=== PATIENT | female | born 1985 | race Caucasian/White ===

== ENCOUNTER 2019-08-24 10:41 | Outpatient (RCR) | payer OTHER, SELFPAY ==
[2019-08-25] MEDS: RHO(D) IMMUNE GLOBULIN 300 MCG SYRINGE IM (18:23)
== END 2019-11-22 23:59 | disposition home or self-care (01) ==
LOC: ANHLAB 10:41
PROVIDERS: Visit Provider Student in an Organized Health Care Education/Training Program
DX: Z29.13 Encounter for prophylactic Rho(D) immune globulin (principal); O36.0990 Maternal care for other rhesus isoimmunization, unspecified trimester, not applicable or unspecified; Z3A.00 Weeks of gestation of pregnancy not specified
CPT/HCPCS: 36415; 86900; 86901; 90384; 96372; J2790

== ENCOUNTER 2019-10-05 06:32 | Inpatient (IN) | payer OTHER, SELFPAY ==
[2019-10-05] VITALS (120 sets, daily range): BP systolic 66–154; BP diastolic 34–85; PULSE 70–140; RESP 16; TEMP 36.6–37.1; O2SAT 84–100; BMI 25.9
--- NOTE | 2019-10-05 08:47 | LDADM ---
This patient, Karine Aburto, was admitted to Labor/Delivery/Recovery 103 on 10/05/19 at 06:32. Plans for labor, pain management and were discussed with patient. Patient/family oriented to hospital policies and general routines including ID bracelet, bed and alarms, visiting hours, pain management, procedures, bathroom and other care routines, personal items, smoking policy, room service/diet and guest tray routines, security routines, and visiting hours. Patient/Family are encouraged to report perceived risks to care and to ask questions if they do not understand what they are told or what they should do. See OBIX for further documentation.
[2019-10-05 08:48] LABS: Basophils Absolute Auto 0.1 K/mm3 (0.0-0.1); Basophils Percent Auto 0.4 % (0.2-1.2); Eosinophils Absolute Auto 0.2 K/mm3 (0-0.3); Eosinophils Percent Auto 1.4 % (0-4.4); Hematocrit 35.6 % (37.0-47.0); Hemoglobin 11.1 g/dL (12.0-15.0); Immature Granulocyte Absolute 0.22 K/mm3 (0.00-0.031); Immature Granulocyte Percent A 1.5 % (0-0.5); Lymphocytes Percent Auto 15.5 % (18.3-44.2); Mean Corpuscular HGB Conc 31.2 g/dl (32-36); Mean Corpuscular Hemoglobin 24.9 pg (26-34); Mean Corpuscular Volume 79.8 fl (80-100); Monocytes Absolute Auto 1.3 K/mm3 (0.1-0.6); Monocytes Percent Auto 9.3 % (2.6-8.5); Neutrophils Absolute Auto 10.2 K/mm3 (1.3-6.7); Neutrophils Percent Auto 71.9 % (45.5-73.1); Platelet Count Result 287 k/mm3 (150-375); Red Blood Count 4.46 M/mm3 (4.2-5.4); Red Cell Distribution Width 14.7 % (11.5-14.5); White Blood Count 14.2 K/mm3 (4.5-10.0)
--- NOTE | 2019-10-05 09:35 | WPDHPUPDATE1 ---
History and Physical Update Update Date/Time: 10/05/19 09:35 33 yo at 40w0d who presents with regular contractions. She denies vaginal bleeding or LOF. She endorses good FM. History and Physical has been reviewed, including an updated exam of the patient. There are NO changes in the patient's condition. Risks, benefits, and alternatives have been discussed and questions answered. Patient agrees to proceed with procedure. A/P 33 yo at 40w0d in labor cvx 4cm AROM for scant amount of clear fluid FHT cat 1 Rh+ GBS neg expectant managment
[2019-10-05] MEDS: LACTATED RINGERS 1,000 ML 125 ML IV CONT (10:15)
--- NOTE | 2019-10-05 11:55 | PM.OBPNLAB ---
Pain Control Date/time seen: 10/05/19 11:55 Pain control: epidural Pelvic Exam Dilation (cm): 8 Effacement (%): 90 station: 0 Contractions Monitor mode: External Contraction frequency: 2 Contraction pattern: Regular Status status: Category l Assessment and Plan Assessment: active labor Plan: continuous present management
--- NOTE | 2019-10-05 17:38 | PM.OBPRVD ---
OB - Delivery Note Procedure Procedure: Patient pushed for a spontaneous vaginal delivery. Nuchal cord x1 was noted at the perineum. The fetus was delivered atraumatically and placed on the maternal abdomen. The cord was clamped and cut after 1 minute of life. The cord was double clamped and cut and a segment of cord was collected for cord gases. Cord blood was collected for blood type and Coomb's testing. The placenta delivered spontaneously and was noted to be intact. The perineum was inspected and there was a 2nd degree perineal laceration. The laceration was repaired with 3-0 vicryl in the usual fashion. The uterus was firm and good hemostasis was noted. The patient and fetus were stable in the delivery room. Induction method: none Delivery augmentation: rupture of membranes Delivery monitor: external FHT Route of delivery: Episiotomy description: None Laceration description: Perineal - 2nd Degree Delivery repair: vicryl Specimen: No Estimated blood loss (mL): 300 Anesthesia type: Epidural Disposition: floor () Complications: No immediate complications [place] Baby Date of : 10/05/19 Time of : 17:15 Weeks of gestation at delivery: 40 Infant gender: Female Weight (pounds): 7 Weight (ounces): 7 presentation: vertex position: Right Occiput Anterior Placenta delivery description: Spontaneous cord vessel description: Nuchal Cord score one minute: 8 score five minutes: 9
--- NOTE | 2019-10-05 17:41 | PM.OBDSVD ---
OB - DS: Summary OB Procedures : None OB Procedures Intrapartum: Spontaneous Vag Delivery OB Procedures: : None Status at Discharge Functional status at discharge: independent ambulation Overall status at discharge: patient is back to baseline Time Spent with Patient Time attestation: Total time spent providing and/or coordinating discharge services: Time spent: Less than 30 minutes Exam Const: General: comfortable and no acute distress Resp: Effort & Inspection: normal respiratory effort Auscultation: clear to auscultation bilaterally Cardio: Rate: regular rate GI: GI Palp: Yes Soft to palpation Auscultation: normal bowel sounds Other: Fundus firm below umbilicus Psych: Appearance: grossly normal Mental Status: mental status grossly normal Affect: normal affect DS: Data Data Completed and Pending Labs on day of discharge: Labs from last 24 hours 10/05/19 10/05/19 10/05/19 08:39 08:39 08:39 WBC 14.2 H RBC 4.46 Hgb 11.1 L Hct 35.6 L MCV 79.8 L MCH 24.9 L MCHC 31.2 L RDW 14.7 H Plt Count 287 MPV 10.0 Immature Gran % (Auto) 1.5 H Neut % (Auto) 71.9 Lymph % (Auto) 15.5 L [place] % (Auto) 9.3 H Eos % (Auto) 1.4 Baso % (Auto) 0.4 Lymph # (Auto) 2.20 [place] # (Auto) 1.3 H Eos # (Auto) 0.2 Baso # (Auto) 0.1 Abs Immat Gran (auto) 0.22 H Absolute Neuts (auto) 10.2 H Absolute Nucleated RBC 0.0 Nucleated RBC % 0.0 RPR Pending Blood Type B Negative Antibody Screen Positive Antibody Identification Passive Due to RH Imm Glob Antigen Identification Pending DEEDEE, IgG Interpret TNP DEEDEE, Poly Interpret Negative DEEDEE, Complement Interp TNP Discharge Plan Discharge Attending physician on discharge: Connor Powers Discharging Clinician: Gabo Brown Patient Disposition: Home, Self-Care Activity: may shower, as tolerated and pelvic rest Diet: regular Discharge Instructions: Education: Mom and Baby Guide Given to: Mother Follow-Up: Call your delivering provider's office for an appointment to be seen in: 6 Weeks Mom and baby should come to the [facility] for the follow-up appointment. Appointment Date/Time: October 08, 2019 at 11:00 am What to expect at your follow-up visit: Blood Pressure Check Call [phone] if you are unable to keep your appointment time. BREAST CARE: 1. Wear a snug supportive bra. 2. For engorgement discomfort: Breast Feeding: A. Apply warm moist washcloths B. Express milk as needed to relieve engorgement C. Wear loose clothing Bottle Feeding: A. May apply ice packs 3. For sore nipples: A. Identify correct latch-on B. Apply warm moist washcloths before and after nursing C. Air dry nipples after nursing D. May apply Lansinoh cream to nipples PERINEAL CARE: 1. Until bleeding stops, use your martin bottle after urinating 2. Change your pad frequently throughout the day 3. You may take sitz baths several times a day (fill your bathtub with warm water and soak for 20 minutes.) Do NOT bathe in the water 4. No tub baths until seen by your physician - You may shower ACTIVITY: 1. Rest as much as possible. 2. Do not exercise or lift anything heavier than your baby (such as laundry or other children.) 3. Avoid stairs or driving as much as possible. 4. Do not put anything into the vagina. No douching, tampons, or sexual activity until seen by physician. NOTIFY PHYSICIAN IF YOU HAVE ANY QUESTIONS OR IF ANY OF THE FOLLOWING SYMPTOMS OCCUR: 1. If your perineum becomes red, swollen, or more painful than what you have experienced in the hospital. 2. If your vaginal bleeding becomes foul smelling. 3. If your vaginal bleeding becomes more heavy than a period or if your bleeding changes from pink to bright red. However, you may pass an occasional wal
[2019-10-05] MEDS: OXYTOCIN 30 UNITS/NS 500 ML 30 UNITS/500 ML BAG 125 UNITS IV CONT (18:03)
[2019-10-05] MEDS: IBUPROFEN 600 MG TABLET PO (18:53)
[2019-10-05] MEDS: BENZOCAINE 20% AER SPR (*SP) 56 GM CAN 1 SPRAY TOPICAL (18:54)
[2019-10-05] MEDS: WITCH HAZEL 40 PADS 1 PAD TOPICAL (18:54)
--- NOTE | 2019-10-05 20:20 | OBPPTRN ---
Patient transferred to post room #290 via wheelchair. Support person present. Oriented to unit, room, information board, rooming in, admission packet and security measures. Patient verbalizes understanding. with patient.
[2019-10-05] MEDS: ACETAMINOPHEN 325 MG TABLET 650 MG PO (23:09)
[2019-10-06] MEDS: IBUPROFEN 600 MG TABLET PO ×2 (04:33→15:27)
[2019-10-06 04:55] LABS: Hematocrit 30.7 % (37.0-47.0); Hemoglobin 9.3 g/dL (12.0-15.0)
--- NOTE | 2019-10-06 06:47 | PM.OBPNVD ---
OB - PN: Subj Subjective Date/time seen: 10/06/19 06:47 Patient comments: no complaints and pain well controlled baby status: doing well and nursing well OB - PN: Obj Data Labs CBC & Chem 7: 10/06/19 04:37 Labs: Laboratory Results - last 24 hr 10/05/19 10/05/19 10/06/19 08:39 08:39 04:37 WBC 14.2 H RBC 4.46 Hgb 11.1 L 9.3 L Hct 35.6 L 30.7 L MCV 79.8 L MCH 24.9 L MCHC 31.2 L RDW 14.7 H Plt Count 287 MPV 10.0 Immature Gran % (Auto) 1.5 H Neut % (Auto) 71.9 Lymph % (Auto) 15.5 L [place] % (Auto) 9.3 H Eos % (Auto) 1.4 Baso % (Auto) 0.4 Lymph # (Auto) 2.20 [place] # (Auto) 1.3 H Eos # (Auto) 0.2 Baso # (Auto) 0.1 Abs Immat Gran (auto) 0.22 H Absolute Neuts (auto) 10.2 H Absolute Nucleated RBC 0.0 Nucleated RBC % 0.0 Blood Type B Negative Antibody Screen Positive Antibody Identification Passive Due to RH Imm Glob DEEDEE, IgG Interpret TNP DEEDEE, Poly Interpret Negative DEEDEE, Complement Interp TNP Baby's Blood Type Baby's DEEDEE 10/06/19 04:37 WBC RBC Hgb Hct MCV MCH MCHC RDW Plt Count MPV Immature Gran % (Auto) Neut % (Auto) Lymph % (Auto) [place] % (Auto) Eos % (Auto) Baso % (Auto) Lymph # (Auto) [place] # (Auto) Eos # (Auto) Baso # (Auto) Abs Immat Gran (auto) Absolute Neuts (auto) Absolute Nucleated RBC Nucleated RBC % Blood Type B Negative Antibody Screen TNP Antibody Identification DEEDEE, IgG Interpret DEEDEE, Poly Interpret DEEDEE, Complement Interp Baby's Blood Type O pos Baby's DEEDEE Positive OB - PN A/P Plan day: 1 Plan: routine care Time Spent With Patient Time: Total time spent is greater than 50% in coordination of care (as documented) at patient's floor/unit and/or counseling patient: Time with patient: less than 15 minutes Review of Systems Review of Systems: All systems reviewed & are unremarkable except as noted in HPI and below Exam Const: General: no acute distress Eyes: General: appearance normal, both eyes and all related structures Neck: Neck: supple and no JVD Thyroid: thyroid normal Resp: Effort & Inspection: normal respiratory effort Auscultation: clear to auscultation bilaterally Cardio: Rate: regular rate Rhythm: regular rhythm GI: Inspection: non-distended GI Palp: Yes Soft to palpation, No Tenderness to palpation present (GI) and No Guarding due to palpation present (GI) Auscultation: normal bowel sounds : General: Yes bladder normal to palpation External Female Exam: normal external appearance Speculum Exam - Vagina: normal vaginal discharge and No vaginal bleeding Speculum Exam - Cervix: nontender Bimanual exam- vagina & uterus: bladder normal to palpation and No Cervical tenderness present OB/external & speculum: No vaginal bleeding Skin: General skin exam: no rashes or lesions noted Extrem: General: normal to inspection and no edema Psych: Mental Status: mental status grossly normal Affect: normal affect
[2019-10-06] MEDS: POLYSACCHARIDE IRON COMPLEX 150 MG CAPSULE PO ×2 (07:11→15:28)
[2019-10-06] MEDS: MULTIVIT/MIN/PREN/FOL AC/IRON TABLET 1 TAB PO (07:12)
[2019-10-06] MEDS: DOCUSATE SODIUM 100 MG CAPSULE PO ×2 (07:12→15:28)
[2019-10-06 08:00] VITALS: BP 123/88; PULSE 82; RESP 18; TEMP 37.2; O2SAT 99
[2019-10-06 10:06] LABS: Rapid Plasma Reagin Non-Reactive (NonReactive)
[2019-10-06] MEDS: RHO(D) IMMUNE GLOBULIN 300 MCG SYRINGE IM (15:39)
[2019-10-06 19:50] VITALS: BP 134/69; PULSE 106; RESP 16; TEMP 37; O2SAT 100
[2019-10-06] MEDS: ACETAMINOPHEN 325 MG TABLET 650 MG PO (19:57)
[2019-10-07] MEDS: IBUPROFEN 600 MG TABLET PO (04:54)
--- NOTE | 2019-10-07 06:19 | PC.NURSE ---
Patient was given the opportunity to view the discharge video Mother & Baby Care, The First Two Weeks and to ask questions. Patient declined viewing the video and has been given the mother/baby guide for home reference. Patient delivered her first child at [facility], and states she remembers the video.
--- NOTE | 2019-10-07 07:30 | PC.NURSE ---
PT introductions made and plan of care discussed per post , pain management, breast feeding, daily care activities and pending discharge to home. PT verbalized understanding of such care.
[2019-10-07 08:20] VITALS: BP 126/82; PULSE 89; RESP 18; TEMP 36.9; O2SAT 99
--- NOTE | 2019-10-07 08:41 | PM.OBPNVD ---
OB - PN: Subj Subjective Date/time seen: 10/07/19 08:41 Narrative: Pain OK. Would like to go home. OB - PN: Obj Data Labs CBC & Chem 7: 10/06/19 04:37 Labs: Laboratory Results - last 24 hr 10/05/19 10/06/19 08:39 04:37 RPR Non-reactive Blood Type B Negative Antibody Screen TNP Screen Negative Baby's Blood Type O pos Baby's DEEDEE Positive Doses of RhIg Required 1 OB - PN A/P Plan Comments: A: PPD#2, doing well. P: Home to f/u 6 weeks. Exam Psych: Other: AVSS ABD soft, nontender, fundus firm EXT nontender
[2019-10-07 10:00] VITALS: PULSE 89; RESP 18; O2SAT 99
[2019-10-07] MEDS: ACETAMINOPHEN 325 MG TABLET 650 MG PO (10:06)
[2019-10-07] MEDS: POLYSACCHARIDE IRON COMPLEX 150 MG CAPSULE PO (10:07)
[2019-10-07] MEDS: MULTIVIT/MIN/PREN/FOL AC/IRON TABLET 1 TAB PO (10:08)
[2019-10-07] MEDS: DOCUSATE SODIUM 100 MG CAPSULE PO (10:08)
--- NOTE | 2019-10-07 12:30 | PC.NURSE ---
PT received discharge instructions per protocol and verbalized understanding of such instructions.
--- NOTE | 2019-10-07 13:00 | PC.NURSE ---
PT discharged to home ambulatory accompanied by spouse and to waiting car. Follow up appts confirmed
[2019-10-08 11:27] VITALS: BP 131/78; PULSE 86; RESP 14; TEMP 37.2
== END 2019-10-07 13:00 | disposition home or self-care (01) | DRG 807 ==
LOC: ANHLDR 17:41 → ANHOB2 10-07 07:43 → ANHLDR 10-08 11:35 → ANHOB2 10-08 11:35
PROVIDERS: Admitting Provider Student in an Organized Health Care Education/Training Program; Visit Provider Obstetrics & Gynecology
DX: O69.81X0 Labor and delivery complicated by cord around neck, without compression, not applicable or unspecified (principal); Z37.0 Single live birth; Z3A.40 40 weeks gestation of pregnancy; O76 Abnormality in fetal heart rate and rhythm complicating labor and delivery; O70.1 Second degree perineal laceration during delivery
CPT/HCPCS: 36415; 85014; 85018; 85025; 85461; 86592; 86850; 86880; 86900; 86901; 86902; 90384; A9270; J2590; J2790; J2795; J7120

== ENCOUNTER 2021-08-04 13:06 | Emergency (ER) | payer OTHER, SELFPAY ==
--- NOTE | ~2021-08-04 | XR_ITS ---
EXAMINATION: XR ankle LT min 3V DATE: 08/04/2021 13:33 INDICATION: Left ankle pain TECHNIQUE: Anteroposterior, lateral, mortise, and additional oblique view of the ankle were obtained. COMPARISON: None. FINDINGS: There is no fracture, dislocation, or subluxation. The bones, soft tissues, and joint space s are normal. IMPRESSION: 1. No acute osseous abnormality. Reviewed, dictated and finalized at location A. [employer]
[2021-08-04 13:20] VITALS: BP 125/60; PULSE 83; RESP 16; TEMP 36.8; O2SAT 100
--- NOTE | 2021-08-04 13:53 | ED.LOWEXIN ---
HPI - Extremity Injury (Lower) General Chief Complaint: Extremity Injury, Lower Stated Complaint: FALL/INJURED L ANKLE Time Seen by Provider: 08/04/21 13:47 Source: patient and RN notes reviewed Mode of arrival: ambulatory Limitations: no limitations History of Present Illness HPI Narrative: Patient presents today complaining of left ankle injury. She fell on some ice and rolled her ankle yesterday at 1630. She reports some tingling to her toes, but denies numbness. She currently rates her pain 2/10, which increases with walking. She has been taking ibuprofen with some relief. MD complaint: ankle injury Related Data Allergies Allergy/AdvReac Type Severity Reaction Status Date / Time Penicillins Allergy Unknown Verified 02/15/16 13:45 Review of Systems Review of Systems: CONSTITUTIONAL: Denies body aches, fever, chills, or sweats. EYES: Denies visual changes, redness, or discharge. ENT: Denies rhinorrhea, congestion, sore throat, or otalgia. CARDIOVASCULAR: Denies chest pain, palpitations, or edema. RESPIRATORY: Denies cough or dyspnea. GASTROINTESTINAL: Denies abdominal pain, nausea, vomiting, or diarrhea. GENITOURINARY: Denies dysuria or hematuria. SKIN: Denies rash, itching, or wounds. MUSCULOSKELETAL: Denies back pain, or myalgia. + Left ankle injury NEUROLOGIC: Denies headache, numbness, or weakness.+ Tingling of toes PSYCH: Denies depression or anxiety. [facility] Family History Family History Father Diabetes mellitus Hypertension Family history of diabetes mellitus in first degree relative Mother Diabetes mellitus Hypertension Family history of diabetes mellitus in first degree relative Grandparent Family history of lung cancer Family history of malignant neoplasm of brain Other Family history of malignant neoplasm of ovary Social History Social History Smoking status: Never smoker Alcohol intake: current Substance use: never Gender identity (if verbalized by the patient): Female Spiritual care concerns: No Comments At time of signature, I have reviewed and agree with nursing past medical, surgical, social and family history unless otherwise noted. Please see nursing chart for further information. There is no relevant family history pertinent to the presenting complaint Exam Narrative: GENERAL: Well-appearing, well-nourished, and in no acute distress. HEAD: Normocephalic, atraumatic. EYES: EOMI. No redness or drainage. Conjunctivae normal. ENT: Mucous membranes pink and moist. NECK: Normal AROM. CHEST: No respiratory distress. EXTREMITIES: Left ankle: Mild edema to the lateral ankle. No bony tenderness of the lateral malleolus. Soft tissue tenderness to the lateral ankle with mild ecchymosis as well. Mild tenderness to the anterior ankle as well. Distal sensation intact in all toes. Capillary refill normal. Pedal pulse normal. Full range of motion of the ankle with increased pain with dorsiflexion. SKIN: Warm, dry, no rash. Capillary refill normal. Normal skin turgor. NEURO: No focal deficits. Alert and oriented x3. Gait steady. PSYCH: Normal affect. No signs of depression or anxiety. Course Course Level of Care: Express Care Visit Vital Signs Vital signs: Vital Signs Temperature 98.3 F 08/04/21 13:20 Pulse Rate 83 08/04/21 13:20 Respiratory Rate 16 08/04/21 13:20 Blood Pressure 125/60 08/04/21 13:20 Pulse Oximetry 100 08/04/21 13:20 Temperature 98.3 F 08/04/21 13:20 Pulse Rate 83 08/04/21 13:20 Respiratory Rate 16 08/04/21 13:20 Blood Pressure 125/60 08/04/21 13:20 Pulse Oximetry 100 08/04/21 13:20 Reviewed. Pt has been instructed to follow up with her PCP regarding her elevated blood pressure today. MDM - Extremity Injury (Lower) Differential Diagnosis Differential diagnosis: Likely ankle sprain and strai
== END 2021-08-04 14:01 | disposition home or self-care (01) ==
PROVIDERS: Emergency Provider Nurse Practitioner
DX: S93.402A Sprain of unspecified ligament of left ankle, initial encounter (principal); W00.9XXA Unspecified fall due to ice and snow, initial encounter
CPT/HCPCS: 73610; 99213; G0463

== ENCOUNTER 2023-02-14 09:07 | Outpatient (RCR) | payer OTHER, SELFPAY ==
[2023-02-15] MEDS: RHO(D) IMMUNE GLOBULIN 300 MCG/2 ML SYRINGE IM (19:50)
== END 2023-05-15 23:59 | disposition home or self-care (01) ==
LOC: ANHLAB 09:07
PROVIDERS: Visit Provider Obstetrics & Gynecology
DX: Z29.13 Encounter for prophylactic Rho(D) immune globulin (principal); O36.0190 Maternal care for anti-D [Rh] antibodies, unspecified trimester, not applicable or unspecified; Z3A.00 Weeks of gestation of pregnancy not specified
CPT/HCPCS: 36415; 85461; 86850; 86900; 86901; 90384; 96372; J2790

== ENCOUNTER 2023-05-06 07:30 | Inpatient (IN) | payer BC, SELFPAY ==
[2023-05-06] VITALS (70 sets, daily range): BP systolic 90–146; BP diastolic 51–100; PULSE 55–119; RESP 16–18; TEMP 36.5–36.6; O2SAT 84–100; BMI 29.2
[2023-05-06 08:21] LABS: Basophils Absolute Auto 0.1 K/mm3 (0.0-0.1); Basophils Percent Auto 0.6 % (0.2-1.2); Eosinophils Absolute Auto 0.2 K/mm3 (0-0.3); Eosinophils Percent Auto 1.1 % (0-4.4); Hematocrit 35.2 % (37.0-47.0); Hemoglobin 10.7 g/dL (12.0-15.0); Immature Granulocyte Absolute 0.33 K/mm3 (0.00-0.031); Immature Granulocyte Percent A 2.3 % (0-0.5); Lymphocytes Percent Auto 15.6 % (18.3-44.2); Mean Corpuscular HGB Conc 30.4 g/dl (32-36); Mean Corpuscular Hemoglobin 23.2 pg (26-34); Mean Corpuscular Volume 76.4 fl (80-100); Mean Platelet Volume 9.6 fl (7.4-10.4); Monocytes Absolute Auto 1.2 K/mm3 (0.1-0.6); Monocytes Percent Auto 8.5 % (2.6-8.5); Neutrophils Absolute Auto 10.1 K/mm3 (1.3-6.7); Neutrophils Percent Auto 71.9 % (45.5-73.1); Platelet Count Result 310 k/mm3 (150-375); Red Blood Count 4.61 M/mm3 (4.2-5.4); Red Cell Distribution Width 16.8 % (11.5-14.5); White Blood Count 14.1 K/mm3 (4.5-10.0)
[2023-05-06] MEDS: LACTATED RINGERS 500 ML 999 ML IV CONT (08:31)
[2023-05-06 08:33] LABS: Alanine Aminotransferase 15 U/L (6-35); Albumin Level 3.5 g/dL (3.5-5.1); Alkaline Phosphatase 138 U/L (38-126); Anion Gap 7 mmol/L (8-16); Aspartate Amino Transferase 28 U/L (14-36); Bilirubin,Total 0.5 mg/dL (0.2-1.3); Blood Urea Nitrogen 7 mg/dL (7-17); Calcium 8.6 mg/dL (8.4-10.2); Carbon Dioxide 23 mmol/L (22-30); Chloride 104 mmol/L (98-107); Estimated CRCL calculation 141 ml/min; Estimated Glomerular Filt Rate > 60; Glucose 82 mg/dL (65-110); Potassium 3.9 mmol/L (3.4-5.0); Sodium 134 mmol/L (137-145); Uric Acid 3.7 mg/dL (2.5-7.5)
--- NOTE | 2023-05-06 08:47 | PM.IMHP ---
H&P: HPI History of Present Illness Date/Time: 05/06/23 08:47 Chief Complaint: Labor at term Narrative: 37-year-old 3 para 2 whose EDC is 05/02/2023 presents at 40 half weeks gestation active labor. has been uncomplicated she received RhoGAM at 28 weeks her diabetic screen was normal and she had low risk NIPT PMFSH Family History Family History Father Diabetes mellitus Hypertension Family history of diabetes mellitus in first degree relative Mother Diabetes mellitus Hypertension Family history of diabetes mellitus in first degree relative Grandparent Family history of lung cancer Family history of malignant neoplasm of brain Other Family history of malignant neoplasm of ovary Social History Social History Smoking status: Never smoker Second hand tobacco smoke exposure: No Alcohol intake: current Substance use: never Lack of Transportation: No Lack of Food: Never True Current Housing: I Have Housing Concerned About Future Housing: No Difficulty Paying Gas/Electric Bills: No Difficulty Paying for Meds: No Currently Unemployed: No Education: Master's Degree or Higher Difficulty w/ Childcare or Family Care: No Gender identity (if verbalized by the patient): Female Spiritual care concerns: No Meds Home Medications and Allergies Home Medications Medication Instructions Recorded Confirmed Type ferrous sulfate 325 mg (65 mg 325 mg PO DAILY 04/11/23 04/11/23 History iron) tablet prenat.vits,breann,[id number] 1 tablet TIDWMEAL 04/11/23 04/11/23 History Allergies Allergy/AdvReac Type Severity Reaction Status Date / Time Penicillins Allergy Unknown Hives Verified 04/11/23 14:38 Vital Signs Vital Signs - 24 hr 05/06/23 08:13 05/06/23 08:16 05/06/23 08:31 Pulse Rate 96 92 Blood Pressure 130/83 134/81 Oxygen Delivery Room Air Exam Const: General: cooperative, healthy appearing and comfortable Nutritional Appearance: average body habitus Orientation/consciousness: oriented to person, oriented to place and oriented to time Resp: Effort & Inspection: normal respiratory effort Cardio: Rate: regular rate Rhythm: regular rhythm Heart sounds: S1 normal heart sound present and S2 normal heart sound present GI: Inspection: normal to inspection ( gravid soft uterus) : Speculum Exam - Vagina: normal appearance of the vagina Speculum Exam - Cervix: normal appearance of the cervix ( cervix 7100/1. AROM clear. FHTs reassuring) H&P: Results Labs Labs: Short CBC 05/06/23 Range/Units 08:13 WBC 14.1 H (4.5-10.0) K/mm3 Hgb 10.7 L (12.0-15.0) g/dL Hct 35.2 L (37.0-47.0) % Plt Count 310 (150-375) k/mm3 BMP 05/06/23 08:13 Sodium 134 L Potassium 3.9 Chloride 104 Carbon Dioxide 23 BUN 7 Creatinine 0.50 L Glucose 82 Calcium 8.6 Liver Function 05/06/23 Range/Units 08:13 Total Bilirubin 0.5 (0.2-1.3) mg/dL AST 28 (14-36) U/L ALT 15 (6-35) U/L Alkaline Phosphatase 138 H (38-126) U/L Albumin 3.5 (3.5-5.1) g/dL Assessment and Plan Assessment and plan (1) Term : Code(s): Z34.90 - Encounter for supervision of normal , unspecified, unspecified trimester Status: Acute Plan spontaneous vaginal delivery is expected. She is an epidural candidate.
--- NOTE | 2023-05-06 09:17 | WPDANESEPP ---
Anes - Eval Pre Procedure Procedure: Labor epidural Date/Time: 05/06/23 09:17 Surgeon: Rickie Hung Preop Diagnosis: Pain during labor Pre Op Diagnosis: Labor Patient Data Age: 37 Gender: F Height: 1.68 m Weight: 82 kg Last Vital Signs Pulse 90 05/06/23 09:15 BP 128/83 05/06/23 09:15 Pulse Ox 97 05/06/23 09:15 O2 Del Method Room Air 05/06/23 08:13 Allergies Allergy/AdvReac Type Severity Reaction Status Date / Time Penicillins Allergy Unknown Hives Verified 04/11/23 14:38 Home Medications Medication Instructions Recorded Confirmed Type ferrous sulfate 325 mg (65 mg 325 mg PO DAILY 04/11/23 04/11/23 History iron) tablet prenat.vits,breann,[id number] 1 tablet TIDWMEAL 04/11/23 04/11/23 History Laboratory Tests 05/06/23 08:13 WBC 14.1 H K/mm3 (4.5-10.0) RBC 4.61 M/mm3 (4.2-5.4) Hgb 10.7 L g/dL (12.0-15.0) Hct 35.2 L % (37.0-47.0) MCV 76.4 L fl (80-100) MCH 23.2 L pg (26-34) MCHC 30.4 L g/dl (32-36) RDW 16.8 H % (11.5-14.5) Plt Count 310 k/mm3 (150-375) MPV 9.6 fl (7.4-10.4) Immature Gran % (Auto) 2.3 H % (0-0.5) Neut % (Auto) 71.9 % (45.5-73.1) Lymph % (Auto) 15.6 L % (18.3-44.2) [place] % (Auto) 8.5 % (2.6-8.5) Eos % (Auto) 1.1 % (0-4.4) Baso % (Auto) 0.6 % (0.2-1.2) Lymph # (Auto) 2.20 K/mm3 (0.9-3.2) [place] # (Auto) 1.2 H K/mm3 (0.1-0.6) Eos # (Auto) 0.2 K/mm3 (0-0.3) Baso # (Auto) 0.1 K/mm3 (0.0-0.1) Abs Immat Gran (auto) 0.33 H K/mm3 (0.00-0.031) Absolute Neuts (auto) 10.1 H K/mm3 (1.3-6.7) Absolute Nucleated RBC 0.0 K/mm3 (0.0-0.012) Nucleated RBC % 0.0 % (0.0-0.2) Sodium 134 L mmol/L (137-145) Potassium 3.9 mmol/L (3.4-5.0) Chloride 104 mmol/L (98-107) Carbon Dioxide 23 mmol/L (22-30) Anion Gap 7 L mmol/L (8-16) BUN 7 mg/dL (7-17) Creatinine 0.50 L mg/dL (0.7-1.0) Estim Creat Clear Calc 141 ml/min Estimated GFR > 60 (59 - ) Glucose 82 mg/dL (65-110) Uric Acid 3.7 mg/dL (2.5-7.5) Calcium 8.6 mg/dL (8.4-10.2) Total Bilirubin 0.5 mg/dL (0.2-1.3) AST 28 U/L (14-36) ALT 15 U/L (6-35) Alkaline Phosphatase 138 H U/L (38-126) Total Protein 7.0 g/dL (6.3-8.2) Albumin 3.5 g/dL (3.5-5.1) RPR Pending Blood Type B Negative Antibody Screen Pending Patient hx anesthesia problems: none Family hx anesthesia problems: none Results Review: All pre-operative results and documents have been reviewed as part of the pre-operative evaluation. [facility] Family History Family History Father Diabetes mellitus Hypertension Family history of diabetes mellitus in first degree relative Mother Diabetes mellitus Hypertension Family history of diabetes mellitus in first degree relative Grandparent Family history of lung cancer Family history of malignant neoplasm of brain Other Family history of malignant neoplasm of ovary Social History Social History Smoking status: Never smoker Second hand tobacco smoke exposure: No Alcohol intake: current Substance use: never Lack of Transportation: No Lack of Food: Never True Current Housing: I Have Housing Concerned About Future Housing: No Difficulty Paying Gas/Electric Bills: No Difficulty Paying for Meds: No Currently Unemployed: No Education: Master's Degree or Higher Difficulty w/ Childcare or Family Care: No Gender identity (if verbalized by the patient): Female Spiritual care concerns: No Exam Day of Procedure 05/06/23 09:17 Patient weight: normal Neurological: alert and oriented
[2023-05-06] MEDS: OXYTOCIN 30 UNITS/NS 500 ML 30 UNITS/500 ML BAG 999 UNITS IV CONT (12:05)
--- NOTE | 2023-05-06 12:13 | PM.OBPRVD ---
OB - Vaginal Delivery Note Procedure Delivery date: 05/06/23 Induction method: None Delivery augmentation: Rupture of Membranes Delivery monitor: External FHT Route of delivery: Episiotomy description: None Laceration Description: Perineal - 2nd Degree Delivery repair: vicryl Specimen: No Quantitative Blood Loss (ml): 60 Anesthesia type: Epidural Disposition: Floor [place] Baby Date of : 05/06/23 Time of : 12:01 Weeks of gestation at delivery: 40 presentation: vertex position: Right Occiput Anterior Placenta delivery description: Spontaneous Cord Vessel Description: 3 Vessels, Nuchal Cord, Tight and Clamped/Cut score one minute: 9 score five minutes: 9
--- NOTE | 2023-05-06 12:15 | PM.DS ---
DS: Admitting Diagnosis Discharge Date 05/07/2023 Admitting Diagnosis term DS: Summary Hospital Course Reason for hospitalization: patient was admitted in active labor 40 and half weeks gestation on 05/06/2023 Hospital Course: patient underwent spontaneous vaginal delivery second-degree tear and repair. Hospital course unremarkable. She was ambulating voiding without difficulty and generally Phylicia complaints. Time Spent with Patient Time attestation: Total time spent providing and/or coordinating discharge services: DS: Data Data Completed and Pending Labs on day of discharge: Labs from last 24 hours 05/06/23 08:13 WBC 14.1 H RBC 4.61 Hgb 10.7 L Hct 35.2 L MCV 76.4 L MCH 23.2 L MCHC 30.4 L RDW 16.8 H Plt Count 310 MPV 9.6 Immature Gran % (Auto) 2.3 H Neut % (Auto) 71.9 Lymph % (Auto) 15.6 L Dyer % (Auto) 8.5 Eos % (Auto) 1.1 Baso % (Auto) 0.6 Lymph # (Auto) 2.20 Dyer # (Auto) 1.2 H Eos # (Auto) 0.2 Baso # (Auto) 0.1 Abs Immat Gran (auto) 0.33 H Absolute Neuts (auto) 10.1 H Absolute Nucleated RBC 0.0 Nucleated RBC % 0.0 Sodium 134 L Potassium 3.9 Chloride 104 Carbon Dioxide 23 Anion Gap 7 L BUN 7 Creatinine 0.50 L Estim Creat Clear Calc 141 Estimated GFR > 60 Glucose 82 Uric Acid 3.7 Calcium 8.6 Total Bilirubin 0.5 AST 28 ALT 15 Alkaline Phosphatase 138 H Total Protein 7.0 Albumin 3.5 RPR Pending Blood Type B Negative Antibody Screen Positive Antibody Identification Pending Antigen Identification Pending DEEDEE, IgG Interpret Not Performed DEEDEE, Poly Interpret Negative DEEDEE, Complement Interp Pending Discharge Plan Discharge Attending physician on discharge: Gabo Arnold Discharging Clinician: Gabo Arnold Patient Disposition: Home, Self-Care Activity: may shower, no straining and pelvic rest Diet: heart healthy Wound Care Instructions: follow printed instructions Patient Instructions: Antibiotic Form Stand Alone Forms: General Discharge Information Follow-up/Referrals: Gabo Arnold MD [Physician] - Discharge Medications: Continued ferrous sulfate 325 mg (65 mg iron) Tablet 325 mg PO DAILY #2 Tablet 1 tablet TIDWMEAL Date of admission: 05/06/23 07:30 Primary Care Provider: PHYSICIAN,MAJOR ACCOUNT REPRESENTATIVE Admitting Provider: Gabo Arnold Attending physician on admission: Gabo Arnold Condition: Stable
[2023-05-06] MEDS: OXYTOCIN 30 UNITS/NS 500 ML 30 UNITS/500 ML BAG 125 UNITS IV CONT (12:56)
[2023-05-06] MEDS: BENZOCAINE 20% AER SPR (*SP) 56 GM CAN 1 SPRAY TOPICAL (14:26)
[2023-05-06] MEDS: WITCH HAZEL 40 PADS 1 PAD TOPICAL (14:26)
--- NOTE | 2023-05-06 15:10 | PC.NURSE ---
Patient transferred to post room #287 via (Stretcher ). Support person present. Oriented to unit, room, information board, rooming in, admission packet and security measures. Patient verbalizes understanding.
--- NOTE | 2023-05-06 15:41 | PC.NURSE ---
[id number] Introductions were made and Mother verbalizes she is able to independently latch with appropriate positioning/alignment. She denies any nipple discomfort and is responsively . Mother declines any additional assistance/education at this time. Mother is encouraged to call for assistance if her infant doesn?t latch or there is discomfort with latching. Mother voiced understanding of information. Reported to the primary RN.
[2023-05-07 05:55] LABS: Hematocrit 35.2 % (37.0-47.0); Hemoglobin 10.4 g/dL (12.0-15.0)
--- NOTE | 2023-05-07 06:59 | PM.OBPNVD ---
OB - PN: Subj Subjective Date/time seen: 05/07/23 06:59 Patient comments: no complaints and pain well controlled baby status: doing well OB - PN: Obj Data Labs 05/07/23 04:08 05/06/23 08:13 Labs: Laboratory Results - last 24 hr 05/06/23 05/07/23 08:13 04:08 WBC 14.1 H RBC 4.61 Hgb 10.7 L 10.4 L Hct 35.2 L 35.2 L MCV 76.4 L MCH 23.2 L MCHC 30.4 L RDW 16.8 H Plt Count 310 MPV 9.6 Immature Gran % (Auto) 2.3 H Neut % (Auto) 71.9 Lymph % (Auto) 15.6 L Dickson % (Auto) 8.5 Eos % (Auto) 1.1 Baso % (Auto) 0.6 Lymph # (Auto) 2.20 Dickson # (Auto) 1.2 H Eos # (Auto) 0.2 Baso # (Auto) 0.1 Abs Immat Gran (auto) 0.33 H Absolute Neuts (auto) 10.1 H Absolute Nucleated RBC 0.0 Nucleated RBC % 0.0 Sodium 134 L Potassium 3.9 Chloride 104 Carbon Dioxide 23 Anion Gap 7 L BUN 7 Creatinine 0.50 L Estim Creat Clear Calc 141 Estimated GFR > 60 Glucose 82 Uric Acid 3.7 Calcium 8.6 Total Bilirubin 0.5 AST 28 ALT 15 Alkaline Phosphatase 138 H Total Protein 7.0 Albumin 3.5 Blood Type B Negative B Negative Antibody Screen Positive TNP Antibody Identification Passive Due to RH Imm Glob Antigen Identification Not Reportable DEEDEE, IgG Interpret Not Performed DEEDEE, Poly Interpret Negative DEEDEE, Complement Interp Not Performed Baby's Blood Type O pos Baby's DEEDEE Positive OB - PN A/P Plan day: 1 Plan: routine care, discharge home and follow up 6 weeks Time Spent With Patient Time: Total time spent is greater than 50% in coordination of care (as documented) at patient's floor/unit and/or counseling patient: Time with patient: less than 15 minutes Exam Const: General: cooperative, healthy appearing and comfortable Nutritional Appearance: average body habitus Orientation/consciousness: oriented to person, oriented to place and oriented to time HENMT: Head: normal to inspection Resp: Effort & Inspection: normal respiratory effort Cardio: Rate: regular rate Rhythm: regular rhythm Heart sounds: S1 normal heart sound present and S2 normal heart sound present GI: Inspection: normal to inspection ( fundus firm below umbilicus)
[2023-05-07 08:30] VITALS: BP 121/75; PULSE 86; RESP 18; TEMP 36.8; O2SAT 99
[2023-05-07] MEDS: MULTIVIT/MIN/PREN/FOL AC/IRON TABLET 1 TAB PO (09:11)
[2023-05-07] MEDS: RHO(D) IMMUNE GLOBULIN 300 MCG/2 ML SYRINGE IM (09:44)
--- NOTE | 2023-05-07 10:54 | PC.NURSE ---
[id number] Purposefully rounded to assess for needs. Mother is confident with . We discussed the urine output of the infant and RN encouraged frequent feedings watching for swallowing. Stool diaper was changed and infant was placed [id number]. Parents voiced understanding to call for assistance with the next feeding. [id number] remains [id number] and mother was encouraged to stimulate for wakefulness to breastfeed. Mother voiced understanding. [id number] Worked with mother and infant practicing different positions working on an optimal latch for better swallowing. Mother voiced understanding of what a deep latch looks like, suck/swallow ratios, encouraging milk release with gentle massage/compression, rounded cheek line and encouraging a deep latch with no nipple misshaping. Infant voided 26gms of urine. Mother was cradle position her after the void and states she sees swallowing. Reported to the Primary RN.
[2023-05-07 12:10] VITALS: BP 114/61; PULSE 102; RESP 16; TEMP 36.9; O2SAT 99
--- NOTE | 2023-05-07 13:34 | WPDANLDPN2 ---
Anes-Prog Note L&D Date/Time: 05/07/23 13:34 Comfortable throughout: labor and delivery Neuraxial method: epidural Epidural/Spinal procedure site: clean & non-tender Neuro status: Neuro function grossly intact. Cardiovascular status: normal Respiratory status: normal Airway patency: baseline Mental status: baseline Post-Op hydration status: normal Vital Signs: Last Vital Signs Temp 36.8 C 05/07/23 08:30 Pulse 86 05/07/23 08:30 Resp 18 05/07/23 08:30 BP 121/75 05/07/23 08:30 Pulse Ox 99 05/07/23 08:30 O2 Del Method Room Air 05/07/23 08:45 Pain score (VAS): 06/26 Post-procedural complaints: none Patient feedback: Patient satisfied with anesthetic care.
[2023-05-07 15:44] LABS: Rapid Plasma Reagin Non-Reactive (NonReactive)
[2023-05-08 09:18] VITALS: BP 138/81; PULSE 82; RESP 18; TEMP 36.9; O2SAT 100
== END 2023-05-07 16:15 | disposition home or self-care (01) | DRG 807 ==
LOC: ANHLDR 12:17 → ANHOB2 15:13
PROVIDERS: Admitting Provider Obstetrics & Gynecology; Visit Provider Obstetrics & Gynecology
DX: O69.1XX0 Labor and delivery complicated by cord around neck, with compression, not applicable or unspecified (principal); Z37.0 Single live birth; O70.1 Second degree perineal laceration during delivery; Z3A.40 40 weeks gestation of pregnancy
CPT/HCPCS: 36415; 80053; 84550; 85014; 85018; 85025; 85461; 86592; 86850; 86880; 86900; 86901; 86902; 90384; A9270; J2590; J2790; J2795; J7120